=== PATIENT | male | born 1965 | race African-American/Black ===

== ENCOUNTER 2020-03-13 21:49 | Emergency (ER) | payer SELFPAY ==
[2020-03-13 21:56] VITALS: BP 151/88
== END 2020-03-13 22:58 | disposition left against medical advice (07) ==
LOC: ER 21:49
DX: Z53.21 Procedure and treatment not carried out due to patient leaving prior to being seen by health care provider (principal)

== ENCOUNTER → 2020-03-14 | Outpatient (CLI) | payer MEDICAID ==
--- NOTE | 2020-03-14 14:59 | RADIOLOGY REPORT (SQ) ---
EXAM DESCRIPTION: HIP RIGHT AP/LATERAL IMAGES COMPLETED DATE/TIME: 03/14/2020 2:50 pm REASON FOR STUDY: PAIN IN HIP, OSTEOARTHRITIS IN KNEE M25.551 PAIN IN RIGHT HIP M17.11 UNILATERAL PRIMARY OSTEOARTHRITIS, RIGHT KNEE COMPARISON: None. NUMBER OF VIEWS: Two views. TECHNIQUE: AP pelvis and additional frog-leg view of the right hip. LIMITATIONS: None. FINDINGS: MINERALIZATION: Normal. RIGHT HIP: Joint space narrowing with subchondral sclerosis. Prominent subchondral cysts in the acet abulum. LEFT HIP: Mild degenerative change in the left hip. PUBIS AND ISCHIUM: No fracture. PELVIS: No fracture. SACRUM: No fracture or dislocation. No worrisome bone lesions. LOWER LUMBAR SPINE: No fracture or dislocation. No worrisome bone lesions. No significant disc disea se. SOFT TISSUES: No findings. OTHER: No other significant finding. IMPRESSION: Asymmetric osteoarthritic changes in the right hip with joint space narrowing, subchondr al sclerosis and prominent subchondral cysts. TECHNICAL DOCUMENTATION: JOB ID: [id number] 2010 [employer]- All Rights Reserved Reading location - IP/workstation name: [email or web address]
--- NOTE | 2020-03-14 15:02 | RADIOLOGY REPORT (SQ) ---
EXAM DESCRIPTION: KNEE RIGHT 4 VIEWS IMAGES COMPLETED DATE/TIME: 03/14/2020 2:50 pm REASON FOR STUDY: PAIN IN HIP, OSTEOARTHRITIS IN KNEE M25.551 PAIN IN RIGHT HIP M17.11 UNILATERAL PRIMARY OSTEOARTHRITIS, RIGHT KNEE COMPARISON: None. NUMBER OF VIEWS: Four views. TECHNIQUE: AP, lateral, and both oblique radiographic images acquired of the right knee. LIMITATIONS: None. FINDINGS: MINERALIZATION: Normal. BONES: No acute fracture or dislocation. No worrisome bone lesions. No significant osteophytes. JOINT: No effusion. No chondrocalcinosis. OTHER: No other significant finding. IMPRESSION: NEGATIVE STUDY OF THE RIGHT KNEE. NO EXPLANATION FOR PAIN. TECHNICAL DOCUMENTATION: JOB ID: [id number] 2010 [employer]- All Rights Reserved Reading location - IP/workstation name: [email or web address]
== END ==
LOC: OD 14:32
PROVIDERS: ATTEND Internal Medicine
DX: M25.551 Pain in right hip (principal); M17.11 Unilateral primary osteoarthritis, right knee

== ENCOUNTER → 2020-05-03 | Day surgery (SDC) | payer MEDICAID ==
[~2020-05-03] MED LIST: BUPIVACAINE HCL 0.5 % INJ/PF 30 ML SDV ONE; LIDOCAINE 1% INJ-PF (10 MG/ML) 30 ML SDV ONE; METHYLPREDNISOLONE ACETATE INJ 80 MG/1 ML VIAL ONE
--- NOTE | 2020-05-03 15:30 | RADIOLOGY REPORT (SQ) ---
EXAM DESCRIPTION: INJECT/ASPIR HIP/SHLDR/KNEE; FLUORO/NEEDLE PLACEMENT IMAGES COMPLETED DATE/TIME: 05/03/2020 2:57 pm REASON FOR STUDY: M16.11 UNILATERAL PRIMARY OSTEOARTHRITIS, RIGHT HIP M16.11 UNILATERAL PRIMARY OST EOARTHRITIS, RIGHT HIP COMPARISON: None. FLUOROSCOPY TIME: 0.9 minutes 1 images saved to PACS. LIMITATIONS: None. PROCEDURE: SITE OF INJECTION: Right hip LOCALIZING CONTRAST TYPE AND DOSE: 3 mL Omnipaque MEDICATION TYPE AND DOSE: 80 mg Depo-Medrol, 5 mL 0.5% bupivacaine. Using local anesthesia and sterile technique with fluoroscopic guidance, the needle was advanced into the joint. Iodinated contrast was injected to verify intraarticular placement. This was followed by therapeutic injection of the indicated medications. The needle was removed. There were no immediat e complications. Preprocedure pain level: 6/10. Postprocedure pain level: 0/10. IMPRESSION: THERAPEUTIC INJECTION OF THE RIGHT HIP JOINT ABOVE. COMMENT: Patient medication list reviewed: Yes- Quality ID# [id number]:Eligible professional attests to doc umenting in the medical record they obtained, updated, or reviewed the patient's current medications. . Quality ID 145: Final reports for procedures using fluoroscopy that document radiation exposure peyton tong, or exposure time and number of fluorographic images (if radiation exposure indices are not avail able) TECHNICAL DOCUMENTATION: JOB ID: [id number] 2010 [employer]- All Rights Reserved Reading location - IP/workstation name: [id number]
--- NOTE | 2020-05-03 15:30 | RADIOLOGY REPORT (SQ) ---
EXAM DESCRIPTION: INJECT/ASPIR HIP/SHLDR/KNEE; FLUORO/NEEDLE PLACEMENT IMAGES COMPLETED DATE/TIME: 05/03/2020 2:57 pm REASON FOR STUDY: M16.11 UNILATERAL PRIMARY OSTEOARTHRITIS, RIGHT HIP M16.11 UNILATERAL PRIMARY OST EOARTHRITIS, RIGHT HIP COMPARISON: None. FLUOROSCOPY TIME: 0.9 minutes 1 images saved to PACS. LIMITATIONS: None. PROCEDURE: SITE OF INJECTION: Right hip LOCALIZING CONTRAST TYPE AND DOSE: 3 mL Omnipaque MEDICATION TYPE AND DOSE: 80 mg Depo-Medrol, 5 mL 0.5% bupivacaine. Using local anesthesia and sterile technique with fluoroscopic guidance, the needle was advanced into the joint. Iodinated contrast was injected to verify intraarticular placement. This was followed by therapeutic injection of the indicated medications. The needle was removed. There were no immediat e complications. Preprocedure pain level: 6/10. Postprocedure pain level: 0/10. IMPRESSION: THERAPEUTIC INJECTION OF THE RIGHT HIP JOINT ABOVE. COMMENT: Patient medication list reviewed: Yes- Quality ID# [id number]:Eligible professional attests to doc umenting in the medical record they obtained, updated, or reviewed the patient's current medications. . Quality ID 145: Final reports for procedures using fluoroscopy that document radiation exposure peyton tong, or exposure time and number of fluorographic images (if radiation exposure indices are not avail able) TECHNICAL DOCUMENTATION: JOB ID: [id number] 2010 [employer]- All Rights Reserved Reading location - IP/workstation name: [email or web address]
== END ==
LOC: RAD 13:11
PROVIDERS: ATTEND Family Medicine
DX: M16.11 Unilateral primary osteoarthritis, right hip (principal); Z79.899 Other long term (current) drug therapy
CPT/HCPCS: 20610; 77002; J3490 ×2; J1040

== ENCOUNTER → 2020-08-15 | Day surgery (SDC) | payer MEDICAID ==
[~2020-08-15] MED LIST changes: -LIDOCAINE 1% INJ-PF (10 MG/ML) 30 ML SDV ONE
--- NOTE | 2020-08-15 15:11 | RADIOLOGY REPORT (SQ) ---
EXAM DESCRIPTION: FLUORO/NEEDLE PLACEMENT; INJECT/ASPIR HIP/SHLDR/KNEE IMAGES COMPLETED DATE/TIME: 08/15/2020 1:12 pm REASON FOR STUDY: (M16.11)UNILATERAL PRIMARY OSTEOARTHRITIS, RIGHT HIP M16.11 UNILATERAL PRIMARY OS TEOARTHRITIS, RIGHT HIP COMPARISON: None. FLUOROSCOPY TIME: 0.3 minutes of fluoroscopy was used. 1 images saved to PACS. LIMITATIONS: None. PROCEDURE: SITE OF INJECTION: Right hip LOCALIZING CONTRAST TYPE AND DOSE: 1 mL Omnipaque 300 MEDICATION TYPE AND DOSE: 80 mg Depo-Medrol and 5 mL Sensorcaine Using local anesthesia and sterile technique with fluoroscopic guidance, the needle was advanced into the joint. Iodinated contrast was injected to verify intraarticular placement. This was followed by therapeutic injection of the indicated medications. The needle was removed. There were no immediat e complications. Preprocedure pain level: 3/5. Postprocedure pain level: 0/5. IMPRESSION: THERAPEUTIC INJECTION OF THE RIGHT HIP JOINT ABOVE. COMMENT: Patient medication list reviewed: Yes- Quality ID# [id number]:Eligible professional attests to doc umenting in the medical record they obtained, updated, or reviewed the patient's current medications. . Quality ID 145: Final reports for procedures using fluoroscopy that document radiation exposure peyton tong, or exposure time and number of fluorographic images (if radiation exposure indices are not avail able) TECHNICAL DOCUMENTATION: JOB ID: [id number] 2010 [email or web address]- All Rights Reserved Reading location - IP/workstation name: [email or web address] [id number]
--- NOTE | 2020-08-15 15:11 | RADIOLOGY REPORT (SQ) ---
EXAM DESCRIPTION: FLUORO/NEEDLE PLACEMENT; INJECT/ASPIR HIP/SHLDR/KNEE IMAGES COMPLETED DATE/TIME: 08/15/2020 1:12 pm REASON FOR STUDY: (M16.11)UNILATERAL PRIMARY OSTEOARTHRITIS, RIGHT HIP M16.11 UNILATERAL PRIMARY OS TEOARTHRITIS, RIGHT HIP COMPARISON: None. FLUOROSCOPY TIME: 0.3 minutes of fluoroscopy was used. 1 images saved to PACS. LIMITATIONS: None. PROCEDURE: SITE OF INJECTION: Right hip LOCALIZING CONTRAST TYPE AND DOSE: 1 mL Omnipaque 300 MEDICATION TYPE AND DOSE: 80 mg Depo-Medrol and 5 mL Sensorcaine Using local anesthesia and sterile technique with fluoroscopic guidance, the needle was advanced into the joint. Iodinated contrast was injected to verify intraarticular placement. This was followed by therapeutic injection of the indicated medications. The needle was removed. There were no immediat e complications. Preprocedure pain level: 3/5. Postprocedure pain level: 0/5. IMPRESSION: THERAPEUTIC INJECTION OF THE RIGHT HIP JOINT ABOVE. COMMENT: Patient medication list reviewed: Yes- Quality ID# [id number]:Eligible professional attests to doc umenting in the medical record they obtained, updated, or reviewed the patient's current medications. . Quality ID 145: Final reports for procedures using fluoroscopy that document radiation exposure peyton tong, or exposure time and number of fluorographic images (if radiation exposure indices are not avail able) TECHNICAL DOCUMENTATION: JOB ID: [id number] 2010 [email or web address]- All Rights Reserved Reading location - IP/workstation name: [email or web address] [id number]
== END ==
LOC: RAD 12:27
PROVIDERS: ATTEND Family Medicine
DX: M16.11 Unilateral primary osteoarthritis, right hip (principal)
CPT/HCPCS: 20610; 77002; J3490; J1040